=== PATIENT | female | born 1995 | race American Indian/Alaskan Native ===

== ENCOUNTER 2021-10-11 15:01 | Emergency (ER) | payer OTHER ==
[2021-10-11] MEDS ORDERED: METOCLOPRAMIDE 10 MG TAB PO ONE (20:54)
[2021-10-11] MEDS ORDERED: ACETAMINOPHEN 500 MG TAB PO ONE (20:54)
[2021-10-11] MEDS ORDERED: diphenhydrAMINE 25 MG CAP PO ONE (20:54)
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
[2021-10-11 23:01] VITALS: BP 121/68
== END 2021-10-11 22:17 | disposition home or self-care (01) ==
LOC: ED 15:01
DX: S39.012A Strain of muscle, fascia and tendon of lower back, initial encounter (principal); S16.1XXA Strain of muscle, fascia and tendon at neck level, initial encounter; Z79.899 Other long term (current) drug therapy; V87.7XXA Person injured in collision between other specified motor vehicles (traffic), initial encounter; Y93.89 Activity, other specified; Y92.488 Other paved roadways as the place of occurrence of the external cause; Y99.8 Other external cause status
CPT/HCPCS: 72040; 72100; 99283